=== PATIENT | female | born 1980 | race Two or more races ===

== ENCOUNTER 2019-01-29 18:36 | Emergency (ER) | payer SELFPAY ==
[~2019-01-29] VITALS: Ht 165.1 cm; Wt 103.4 kg
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
[2019-01-29 19:58] VITALS: BP 156/78
[2019-01-29] MEDS ORDERED: HYDROCODONE/APAP 5/325MG 1 EACH TABLET ONE (20:01)
[2019-01-29] MEDS: HYDROCODONE/APAP 5/325MG 1 EACH TABLET PO ONE (20:02)
== END 2019-01-29 20:10 | disposition home or self-care (01) ==
LOC: EDSEX 18:41 → ER 18:41
DX: S20.211A Contusion of right front wall of thorax, initial encounter (principal); Z60.2 Problems related to living alone; V49.59XA Passenger injured in collision with other motor vehicles in traffic accident, initial encounter; Y93.89 Activity, other specified; Y92.411 Interstate highway as the place of occurrence of the external cause; Y99.8 Other external cause status